=== PATIENT | male | born 1940 | race Caucasian/White ===

== ENCOUNTER → 2016-09-07 | Outpatient (CLI) | payer OTHER ==
--- NOTE | 2016-09-07 14:07 | DI ---
MRI LUMBAR SPINE W/O CN,09/07/2016 10:49 AM: Clinical History: Low back pain. Previous Exam: None at this facility. Findings: Multiplanar MR images are obtained through the lumbar spine without contrast. There is grade 1 anterolisthesis of L4 and L5. There is significant facet arthropathy at multiple lev els with facet and ligamentum flavum hypertrophy. The kidneys are unremarkable. The major vascular flow voids are also unremarkable. There is some fluid signal within the L2/3 disc space with a fracture or involving the anterior latosha n of the third lumbar superior endplate. There is edema involving the marrow space of the second and third vertebral bodies. There is also some Modic type II changes involving the anterior superior endp late of the L1 and T12 levels. There is also increased uptake involving the anterior inferior endplat e of T11. The spinal cord descends normally with a normal course, caliber and signal characteristics with the c onus at the L1 level. Individual intervertebral disc spaces: L1/2: There is disc desiccation and a broad-based disc bulge with no significant stenosis. L2/3: At this level, there is edema of the disc space, mild annular fissuring and a broad-based disc bulge combining with facet and ligamentum flavum hypertrophy to cause mild central canal stenosis and mild bilateral neural foraminal narrowing. There is endplate degenerative changes and a fracture of the anterior superior endplate of L3. L3/4: There is some disc desiccation and a broad-based disc bulge with mild facet and ligamentum flav um hypertrophy causing mild to moderate left and mild right neuroforaminal narrowing. L4/5: There is disc desiccation, annular fissuring and grade 1 anterolisthesis of L4 on L5 with signi ficant facet and ligamentum flavum hypertrophy contributing to moderate left lateral recess stenosis and moderate to severe right lateral recess stenosis. L5/S1: There is disc desiccation, annular fissuring and a broad-based disc bulge with facet and ligam entum flavum hypertrophy contributing to mild bilateral lateral recess stenosis. Impression: 1. Fracture of the anterior portion of the superior L3 endplate with edema involving the lower L2 on the upper L3 vertebral bodies. This most likely represents edema from the fracture and from degenerat munir disc disease with Modic type I edema. Cannot completely rule out the possibility of discitis pitt leonid, this is considered much less likely.
== END ==
LOC: MRI 10:38
PROVIDERS: ATTEND Orthopaedic Surgery
DX: M54.5 Low back pain (principal); M51.36 Other intervertebral disc degeneration, lumbar region; M47.26 Other spondylosis with radiculopathy, lumbar region; S32.028A Other fracture of second lumbar vertebra, initial encounter for closed fracture
CPT/HCPCS: 72148

== ENCOUNTER → 2016-09-10 | Outpatient (CLI) | payer OTHER ==
[2016-09-10 12:31] LABS: BASOPHILS # (AUTO) 0.02 10*3/UL; BASOPHILS % (AUTO) 0.2 % (0-1); EOSINOPHILS # (AUTO) 0.09 10*3/UL; EOSINOPHILS % (AUTO) 0.9 % (0-8); HEMATOCRIT 41.1 % (42.0-52.0); HEMOGLOBIN 13.2 g/dL (14.0-18.0); LYMPHOCYTES # (AUTO) 2.47 10*3/uL; MEAN CORPUSCULAR HEMOGLOBIN 27.4 PG (27-31); MEAN CORPUSCULAR HGB CONC 32.1 g/dL (33-37); MEAN CORPUSCULAR VOLUME 85.4 FL (80-90); MEAN PLATELET VOLUME 8.4 FL (7.4-12.2); MONOCYTES # (AUTO) 1.01 10*3/UL (0.3-0.8); NEUTROPHILS # (AUTO) 6.43 10*3/UL; RED BLOOD COUNT 4.81 10^6/uL (4.70-6.10)
[2016-09-10 13:06] LABS: PLATELET MORPHOLOGY COMMENT NORMAL MORPHOLOGY (NORM); RBC MORPHOLOGY COMMENT NORMAL MORPHOLOGY (NORM); WBC MORPHOLOGY COMMENT NORMAL MORPHOLOGY (NORM)
[2016-09-10 13:22] LABS: ERYTHROCYTE SEDIMENTATION RATE 86 MM/HR (0-15)
== END ==
LOC: LAB 12:09
PROVIDERS: ATTEND Orthopaedic Surgery
DX: M79.89 Other specified soft tissue disorders (principal)
CPT/HCPCS: 36415; 85025; 85652; 86140; 87070; 87075; 87205